=== PATIENT | male | born 1990 | race Caucasian/White ===

== ENCOUNTER 2022-05-06 08:38 | Emergency (ER) | payer OTHER ==
[~2022-05-06] VITALS: Ht 182.9 cm; Wt 72.7 kg
[~2022-05-06 08:38] MED LIST: HYDR-4383 PO
[2022-05-06] MEDS ORDERED: LIDOcaine 1% 30ml preserv. free vial IJ ONE (09:10)
[2022-05-06] MEDS ORDERED: TETanus/Pertussis (Acell)/Diphther VAC/PF (Tdap-Adult) 0.5ml syringe IMVAC ONE (09:10)
[2022-05-06] MEDS ORDERED: IBUP-1986 PO (09:59)
[2022-05-06] MEDS ORDERED: CEPH500C2 PO (09:59)
[2022-05-06] MEDS ORDERED: bacitracin 15gm ointment TP STA (10:57)
[2022-05-06 11:15] VITALS: BP 129/69
--- NOTE | 2022-05-06 12:45 | NUR ---
Pt and given and understands d/c instructions. Ambulatory with a steady gait.
== END 2022-05-06 12:45 | disposition home or self-care (01) ==
LOC: ER 08:38
DX: S61.012A Laceration without foreign body of left thumb without damage to nail, initial encounter (principal); S61.211A Laceration without foreign body of left index finger without damage to nail, initial encounter; W27.0XXA Contact with workbench tool, initial encounter; Y93.89 Activity, other specified; Y92.89 Other specified places as the place of occurrence of the external cause; Y99.8 Other external cause status
CPT/HCPCS: 12004; 73130; 90471; 90715; 99283; J7030; A6449

== ENCOUNTER 2022-05-13 08:45 | Emergency (ER) | payer OTHER ==
[~2022-05-13] VITALS: Ht 182.9 cm; Wt 72.7 kg
[~2022-05-13 08:45] MED LIST changes: +IBUP-1986 PO
[2022-05-13 08:48] VITALS: BP 139/95
[2022-05-13] MEDS ORDERED: CEPH-585 PO (12:44)
== END 2022-05-13 10:29 | disposition home or self-care (01) ==
LOC: ER 08:47
DX: T81.31XD Disruption of external operation (surgical) wound, not elsewhere classified, subsequent encounter (principal); Z79.899 Other long term (current) drug therapy; Z79.1 Long term (current) use of non-steroidal anti-inflammatories (NSAID); Z79.2 Long term (current) use of antibiotics
CPT/HCPCS: 29130; 99282; 99283; A6449

== ENCOUNTER 2022-05-27 08:29 | Emergency (ER) | payer OTHER ==
[~2022-05-27] VITALS: Ht 182.9 cm; Wt 72.7 kg
[~2022-05-27 08:29] MED LIST changes: +CEPH-585 PO
[2022-05-27 09:03] VITALS: BP 134/89
[2022-05-27] MEDS ORDERED: MUPI22OI30 TOP (10:41)
== END 2022-05-27 10:55 | disposition home or self-care (01) ==
LOC: ER 08:30
DX: S61.012D Laceration without foreign body of left thumb without damage to nail, subsequent encounter (principal); W29.3XXD Contact with powered garden and outdoor hand tools and machinery, subsequent encounter
CPT/HCPCS: 99283